=== PATIENT | female | born 1970 | race African-American/Black ===

== ENCOUNTER 2017-01-17 16:14 | Emergency (ER) | payer MEDICAID ==
[~2017-01-17] VITALS: Ht 167.6 cm; Wt 118.4 kg
[~2017-01-17 16:14] MED LIST: AMLO5TAB2 PO; ATOR20TA9 PO; CYCL-259 PO; DOCU100C8 PO; FERR325T10 PO; FERR325T20 PO; GABA300C10 PO; HYDR-3144 PO; HYDR-3307 PO; IBUP-1 PO; LEVO500T33 PO; LISI1TAB5 PO; METF10002 PO; METH10TA6 PO; METH4TAB2 PO; METO25TA35 PO; PANT40TA5 PO; POLY17PO3 PO; POLY17PO5 PO
[2017-01-17 16:35] VITALS: BP 138/93
[2017-01-17] MEDS ORDERED: OXYcodone/APAP 5/325MG TABLET PO ONE (17:00)
[2017-01-17] MEDS ORDERED: ONDANSETRON ODT 4 MG PO ONE (17:00)
[2017-01-17] MEDS ORDERED: OXYcodone/APAP 5/325MG TABLET ONE (17:24)
[2017-01-17] MEDS ORDERED: ONDANSETRON ODT 4 MG ONE (17:24)
== END 2017-01-17 18:12 | disposition home or self-care (01) ==
LOC: ED 18:00
DX: K02.9 Dental caries, unspecified (principal); E11.9 Type 2 diabetes mellitus without complications; F17.210 Nicotine dependence, cigarettes, uncomplicated
CPT/HCPCS: 70100; 99284; Q0162

== ENCOUNTER → 2017-05-14 | Outpatient (CLI) | payer MEDICAID ==
[~2017-05-14] MED LIST changes: +DOCU100C33 PO; -DOCU100C8 PO; -FERR325T10 PO; +FERR325T17 PO; +FERR325T18 PO; -FERR325T20 PO; -HYDR-3144 PO; +HYDR-3245 PO; -IBUP-1 PO; +IBUP-11 PO; -LEVO500T33 PO; +LEVO500T47 PO
== END | disposition home or self-care (01) ==
LOC: CFH 10:52
PROVIDERS: ATTEND Nurse Practitioner
DX: Z02.9 Encounter for administrative examinations, unspecified (principal)

== ENCOUNTER → 2017-05-15 | Outpatient (CLI) | payer MEDICAID | END | disposition home or self-care (01) | LOC: CFH 11:44 | PROVIDERS: ATTEND Nurse Practitioner | DX: M25.531 Pain in right wrist (principal); M25.532 Pain in left wrist ==

== ENCOUNTER 2017-12-03 21:08 | Emergency (ER) | payer MEDICAID ==
[~2017-12-03] VITALS: Ht 167.6 cm; Wt 117.5 kg
[2017-12-03] MEDS ORDERED: KETOROLAC 30 MG/1 ML IM ONE (22:00)
[2017-12-03] MEDS ORDERED: DIAZEPAM 5 MG TABLET PO ONE (22:00)
[2017-12-03] MEDS ORDERED: KETOROLAC 30 MG/1 ML ONE (22:09)
[2017-12-03] MEDS ORDERED: DIAZEPAM 5 MG TABLET ONE (22:09)
[2017-12-03 22:40] VITALS: BP 156/67
== END 2017-12-03 22:42 | disposition home or self-care (01) ==
LOC: ED 22:32
DX: S39.012A Strain of muscle, fascia and tendon of lower back, initial encounter (principal); I10 Essential (primary) hypertension; F17.200 Nicotine dependence, unspecified, uncomplicated; V49.49XA Driver injured in collision with other motor vehicles in traffic accident, initial encounter; Y93.I9 Activity, other involving external motion; Y92.488 Other paved roadways as the place of occurrence of the external cause; Y99.8 Other external cause status
CPT/HCPCS: 72110; 96372; 99284; J1885

== ENCOUNTER → 2018-05-28 | Outpatient (CLI) | payer MEDICAID ==
[~2018-05-28] MED LIST changes: -AMLO5TAB2 PO; +AMLO5TAB7 PO
== END | disposition home or self-care (01) ==
LOC: CFH 10:34
PROVIDERS: ATTEND Nurse Practitioner
DX: Z12.31 Encounter for screening mammogram for malignant neoplasm of breast (principal)
CPT/HCPCS: 77067

== ENCOUNTER → 2018-08-14 | Outpatient (CLI) | payer MEDICAID ==
[~2018-08-14] MED LIST changes: +AMLO-150 PO; -AMLO5TAB7 PO; +ATOR20TA37 PO; -ATOR20TA9 PO; +POLY17PO29 PO; -POLY17PO3 PO
== END | disposition home or self-care (01) ==
LOC: CFH 12:43
PROVIDERS: ATTEND Nurse Practitioner Critical Care Medicine
DX: M47.26 Other spondylosis with radiculopathy, lumbar region (principal); M25.78 Osteophyte, vertebrae; M50.13 Cervical disc disorder with radiculopathy, cervicothoracic region
CPT/HCPCS: 72050; 72110; 72141; 72148

== ENCOUNTER 2019-02-16 08:40 | Outpatient (CLI) | payer MEDICAID ==
[2019-03-04] MEDS ORDERED: GUAI200T3 PO (09:40)
[2019-03-04] MEDS ORDERED: PRED20TA PO (09:40)
[2019-03-04] MEDS ORDERED: ALBU18HF IH (09:40)
== END 2019-02-16 23:59 | disposition home or self-care (01) ==
LOC: CFH 08:40
PROVIDERS: ATTEND Nurse Practitioner
DX: S43.491A Other sprain of right shoulder joint, initial encounter (principal); M75.21 Bicipital tendinitis, right shoulder; M19.011 Primary osteoarthritis, right shoulder; X58.XXXA Exposure to other specified factors, initial encounter; Y93.89 Activity, other specified; Y92.89 Other specified places as the place of occurrence of the external cause; Y99.8 Other external cause status